=== PATIENT | female | born 1970 | race American Indian/Alaskan Native ===

== ENCOUNTER 2021-07-14 13:57 | Emergency (ER) | payer MEDICARE, BC ==
[2021-07-14] MEDS ORDERED: ASPIRIN 325 MG TAB PO ONE (15:11)
[2021-07-14] MEDS ORDERED: FAMOTIDINE 20 MG TAB PO ONE (15:12)
--- NOTE | 2021-07-14 15:12 | Emergency Department Report ---
ED Chest Pain HPI - General Chief Complaint: Chest Pain Stated Complaint: CP Time Seen by Provider: 07/14/21 14:53 Source: patient Mode of arrival: Ambulatory Limitations: No Limitations - History of Present Illness Initial Comments: 51-year-old female with past medical history of sleep apnea and myasthenia gravis presents to the ER today with complaints of substernal chest tightness. Patient states symptoms are about an hour ago while she was driving. She states that when the symptoms started with a 6 out of 10 that was a 3 out of 10 since arriving to the ER. She states that the tightness in the chest was related to gas initially as 1 hour prior to the onset of her pain she did have a steak sandwich but got her nervous and she started to become anxious when he was not getting better. She denies any shortness of breath, nausea, vomiting, di aphoresis or associate abdominal pain. She does admit that she has had a cough for the past 3 to 4 days and the cough was sometimes severe. She states that today the cough is better. She did see her PCP for the cough yesterday and was prescribed steroids and antibiotic but she has not started taking any of it yet. She does not smoke. She denies any illicit drug use or alcohol abuse. She denies any history of PE/DVT and she denies any risk factors for PE or DVT. She denies any family history of heart disease. MD Complaint: chest pain -: hour(s) (1) Severity scale (0 -10): 7 - Related Data Previous Rx's Medication Instructions Recorded Last Taken Type Famotidine [Pepcid] 20 mg PO BID #30 tablet 07/14/21 Unknown Rx Allergies Allergy/AdvReac Type Severity Reaction Status Date / Time No Known Allergies Allergy Unverified 07/14/21 14:35 Heart Score - HEART Score History: Slightly suspicious EKG: Normal Age: 45-65 Risk factors: 1-2 risk factors Troponin: < normal limit HEART Score: 2 - EKG Read Time Time EKG Completed: 14:14 EKG Read Time: 14:14 - Critical Actions Critical Actions: 0-3 pts:0.9-1.7%risk of adverse cardiac event.Candidate for discharge ED Review of Systems ROS: Stated complaint: CP Other details as noted in HPI Comment: All other systems reviewed and negative Constitutional: denies: chills, fever Eyes: denies: eye pain, eye discharge, vision change ENT: denies: ear pain, throat pain Respiratory: cough. denies: shortness of breath, SOB with exertion, SOB at rest, wheezing Cardiovascular: chest pain Gastrointestinal: denies: abdominal pain, nausea, diarrhea, constipation, hematemesis, melena, hematochezia Genitourinary: denies: urgency, dysuria, frequency, hematuria, discharge, abnormal menses, dyspareunia Musculoskeletal: denies: back pain, joint swelling, arthralgia Skin: denies: rash, lesions, change in color, change in hair/nails, pruritus Neurological: denies: headache, weakness, numbness, paresthesias, confusion, abnormal gait, vertigo Psychiatric: denies: anxiety, depression, auditory hallucinations, visual hallucinations, homicidal thoughts, suicidal thoughts Hematological/Lymphatic: denies: easy bleeding, easy bruising, swollen glands ED Past Medical Hx - Medications Home Medications: Home Medications Medication Instructions Recorded Confirmed Last Taken Type Famotidine [Pepcid] 20 mg PO BID #30 tablet 07/14/21 Unknown Rx ED Physical Exam - General Limitations: No Limitations General appearance: alert, in no apparent distress - Head Head exam: Present: atraumatic, normocephalic, normal inspection - Eye Eye exam: Present: normal appearance, PERRL, EOMI Pupils: Present: normal accommodation - Neck Neck exam: Present: normal inspection, full ROM. Absent: meningismus - Respiratory Respiratory exam: Present: normal lung sounds bilaterally, chest wall tenderness (parasternal areas). Absent: respiratory distress, wheezes, rales, rhonchi - Cardiovascular Cardiovascular Exam: Present: regular rate, normal rhythm, normal heart sounds - GI/Abdominal GI/Abdominal exam: Present: soft. Absent: distended, tenderness, guarding, rebound - Extremities Exam Extremities exam: Present: normal inspection, full ROM. Absent: pedal edema, calf tenderness - Neurological Exam Neurological exam: Present: alert, oriented X3, CN II-XII intact, normal gait - Psychiatric Psychiatric exam: Present: normal affect, normal mood - Skin Skin exam: Present: intact ED Course Vital Signs 07/14/21 07/14/21 14:00 20:15 Temperature 98.0 F Pulse Rate 72 68 Respiratory 17 16 Rate Blood Pressure 125/57 128/53 [Right] O2 Sat by Pulse 98 100 Oximetry ED Medical Decision Making - Lab Data Result diagrams: 07/14/21 15:25 07/14/21 15:25 - EKG Data EKG shows normal: sinus rhythm Rate: normal - EKG Data Interpretation: normal EKG - Radiology Data Radiology results: report reviewed Patient: CONSUELO MCKEE MR#: [id number] : 1970 Acct:[id number] Age/Sex: 51 / F ADM Date: 07/14/21 Loc: ED Attending Dr: Ordering Physician: MARIUSZ VILLASENOR Date of Service: 07/14/21 Procedure(s): XR chest routine 2V Accession Number(s): [id number] cc: MARIUSZ VILLASENOR Fluoro Time In Minutes: CHEST 2 VIEWS INDICATION: Chest Pain. COMPARISON: none FINDINGS: Support devices: None. Heart: Within normal limits. Previous sternotomy is noted, correlate with history. Lungs/pleura: No acute air space or interstitial disease. No pneumothorax. Additional findings: None. IMPRESSION: No acute findings. Signer Name: Roni Burris Jr, MD Signed: 07/14/2021 4:03 PM Workstation Name: [id number] Transcribed By: TTR Dictated By: RONI BURRIS JR, MD Electronically Authenticated By: RONI BURRIS JR, MD Signed Date/Time: 07/14/211602 DD/ 02 TD/TT: - Medical Decision Making Patient reports feeling much better. She is well-appearing, nontoxic and not in any significant distress. She is not in any respiratory distress. Patient is hemodynamically stable with stable vital signs. Labs reviewed --white count was mildly decreased at 2.4, absolute neutrophil calculation shows that she is not neutropenic, remainder of the CBC unremarkable; CMP unremarkable. Lipase was mildly elevated at 118. Chest x-ray shows nothing acute. She has had 2 (-) troponins. And EKGs x2 showed no STEMI acute ischemic changes or significant dysrhythmias. Patient has a heart score of 2; she has a PERC score of 0; discussed results with patient. She does admit that she has a known history of low white counts and her PCP recommended her follow-up with a cook pickled meat but she has not done so as yet. Mildly elevated lipase could be nonspecific but at this time I do not suspect pancreatitis as patient has no abdominal pain, tenderness, nausea vomiting or any GI symptoms. I did recommend that she follows up with her PCP to discontinue monitoring it but I did warn her that if she starts having significant upper abdominal pain with nausea vomiting and fever to return immediately to the ER. She denies chronic alcohol abuse. Patient will also be given referral to local sugar mixer for further evaluation and possible outpatient stress test and echo. Patient expressed understanding of all instructions and agree with plan. She understands that if at any point her symptoms worsens to return to the ER. Critical care attestation.: If time is entered above; I have spent that time in minutes in the direct care of this critically ill patient, excluding procedure time. ED Disposition Clinical Impression: Nonspecific chest pain Disposition: 01 HOME / SELF CARE / HOMELESS Is pt being admited?: No Does the pt Need Aspirin: No Condition: Stable Instructions: Nonspecific Chest Pain, Adult Additional Instructions: I recommend taking a baby aspirin every day. Just in case this could be related to indigestion I do recommend taking the Pepcid as prescribed. Most importantly I do recommend following up with the primary care doctor and the sugar mixer listed on your discharge instructions for further evaluation including outpatient echocardiogram and stress test. Your lipase was mildly elevated today at 118 and your white count was 2.4, I do recommend that you follow-up with your PCP to continue monitoring those levels. I do not suspect that you have a pancreatitis associated with the mildly elevated lipase at this time but if at any point you start having significant upper abdominal pain with nausea and vomiting, fever or chills return immediately to the ER. Prescriptions: Famotidine [Pepcid] 20 mg PO BID #30 tablet Referrals: MABLE JENSEN MD [Staff Physician] - 3-5 Days (Primary care doctor) ENA RAE MD [Staff Physician] - 3-5 Days ([employer]library [employer] Services Librarian) Forms: Work/School Release Form(ED) Time of Disposition: 19:33
[2021-07-14 15:54] LABS: Hematocrit 42.3 % (30.3-42.9); Hemoglobin 13.8 gm/dl (10.1-14.3); Mean Corpuscular HGB Conc 33 % (30-34); Mean Corpuscular Volume 89 fl (79-97); Platelet Count 274 K/mm3 (140-440); Red Blood Count 4.75 M/mm3 (3.65-5.03); Red Cell Distribution Width 13.1 % (13.2-15.2)
[2021-07-14 16:00] LABS: Alanine Aminotransferase 15 units/L (7-56); Albumin 3.7 g/dL (3.9-5); Blood Urea Nitrogen 9 mg/dL (7-17); Calcium 9.2 mg/dL (8.4-10.2); Hemolysis Index 8
[2021-07-14 16:05] LABS: BUN/Creatinine Ratio 18
--- NOTE | 2021-07-14 16:07 | XRay Report ---
CHEST 2 VIEWS INDICATION: Chest Pain. COMPARISON: none FINDINGS: Support devices: None. Heart: Within normal limits. Previous sternotomy is noted, correlate with history. Lungs/pleura: No acute air space or interstitial disease. No pneumothorax. Additional findings: None. IMPRESSION: No acute findings. Signer Name: Roni Burris Jr, MD Signed: 07/14/2021 4:03 PM Workstation Name: [id number]
[2021-07-14 17:25] LABS: Total Cells Counted 100
[2021-07-14 17:26] LABS: Platelet Estimate Consistent w Auto; RBC Morphology Normal
[2021-07-14 20:17] VITALS: BP 128/53
--- NOTE | 2021-07-18 14:08 | Electrocardiograph Report ---
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
--- NOTE | 2021-07-18 14:09 | Electrocardiograph Report ---
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
== END 2021-07-14 20:07 | disposition home or self-care (01) ==
LOC: ED 13:57
DX: R07.9 Chest pain, unspecified (principal)
CPT/HCPCS: 36415; 71046; 80053; 83690; 84484; 85007; 85025; 93005; 99284